=== PATIENT | male | born 1965 | race Caucasian/White ===

== ENCOUNTER 2018-01-16 11:08 | Inpatient (IN) ==
[2018-01-16 12:21] VITALS: BP 118/72; PULSE 67; RESP 20; TEMP 98.8; O2SAT 96
[2018-01-16] MEDS ORDERED: Sodium Chlor 0.9% Inj 500 ML IV.CONT ONE (12:45)
[2018-01-16] MEDS ORDERED: Chlorhexidine Gluconate 2% 1 Pack (2 Cloths) TOPICAL ONE (12:45)
[2018-01-16] MEDS ORDERED: Metoprolol Tartrate 25 MG Tablet PO ONE (12:45)
[2018-01-16] MEDS ORDERED: ceFAZolin 2 GM IV; once IV.SIG ONE (13:00)
[2018-01-16] MEDS ORDERED: Lidocaine 1%/Epinephrine 1:100,000 Inj 50 ML Vial ONE (14:35)
--- NOTE | 2018-01-17 23:12 | ECG ---
Date Performed: 01/16/2018 Time Performed: 11:52:21 PTAGE: 52 years EKG: Sinus rhythm BORDERLINE LEFT AXIS DEVIATION BORDERLINE ECG NO PREVIOUS TRACING DOCTOR: Camron Hernandez Interpretating Date/Time 01/17/2018 23:10:53
== END 2018-01-16 13:38 | disposition home or self-care (01) ==
LOC: HSDI 11:08
PROVIDERS: ADMIT Urology; ATTEND Urology